=== PATIENT | male | born 1970 | race Caucasian/White ===

== ENCOUNTER 2025-02-02 15:57 | Emergency (ER) | payer BC, SELFPAY ==
[2025-02-02] VITALS (9 sets, daily range): BP systolic 124; BP diastolic 84; PULSE 84–93; RESP 20; TEMP 36.3; O2SAT 91–95; BMI 45.0
--- OUTSIDE RECORDS SUMMARY | 2025-02-02 16:00 | XMS_ITS | Clinical Summary ---
Author Organization [facility] Address [address] [place] [address] Care Team Providers Care Business Development Professional Name Role Phone Flaca Phillips Primary Care Provider [phone] Allergies Active Allergy Reactions Criticality Noted Date Comments Levofloxacin Other - Describe In Comment Field 08/07/2023 History of Aneurysm of thoracic aorta, first noted on 01/18/2023. Fluoroquinolones have been associated with aortic aneurysm and aortic dissection. Onset is delayed in most cases. Metformin Diarrhea 02/24/2014 Medications melatonin 10 mg tab Take 50 mg by mouth at bedtime. Active Ventolin HFA 90 mcg/actuation inhalerIndication s:Wheezing Inhale 2 Puffs by mouth 4 times daily if needed for Shortness Of Breath or Wheezing. 18 g 1 023 Active acetaminophen (TylenoL) 325 mg tablet Take 650 mg by mouth at bedtime. Max acetaminophen dose: 4000mg in 24 hrs. Active oxygen-air delivery systems (HOME OXYGEN)Indication s:Community acquired pneumonia, unspecified laterality,Hypoxi a,Acute on chronic congestive heart failure, unspecified heart failure type (HC) Oxygen for home use. Liters per minute: 1 L at rest and 2 L with activity per nasal cannula. Will also need 1 L of oxygen bled into CPAP at night. Frequency of use: Continuous with portability.;. Length of need: 99 Months. 1 Each 024 Active Additional Information Patient taking differently: EACH TIME PRN, Oxygen for home use. Liters per minute: 1 L at rest and 2 L with activity per nasal cannula. Will also need 1 L of oxygen bled into CPAP at night. Frequency of use: Continuous with portability.;. Length of need: 99 Months., Informant: Significant Other, Reported on 11/26/2024 camphor-menthoL ([place]) 11-11 % oint Apply topically to affected area(s) 4 times daily if needed (apply to feet for nerve pain). Active camphor-eucalyptu s oiL-menthoL (Vicks Vaporub) 4.7%-1.2%-2.6% ointment Apply topically to affected area(s) 4 times daily if needed (apply to feet as needed for nerve pain relief). Active torsemide (DEMADEX) 20 mg tabletIndications :HFrEF (heart failure with reduced ejection fraction) (HC) Take 1.5 Tablets (30 mg) by mouth once daily. 45 Tablet 2 03/07/20 24 4:54 PM CDT 024 Active Walker - 4 wheelsIndications :Chronic heart failure with preserved ejection fraction (HFpEF) (HC),Acute HFrEF (heart failure with reduced ejection fraction) (HC),CAD in [place] artery,Diabetic peripheral neuropathy (HC),At high risk for falls,Generalized weakness For home use. Length of need: lifetime Diagnosis: CHF, CAD, increased risk falls. 1 Each 024 Active miscellaneous medical supply miscIndications:C hronic heart failure with preserved ejection fraction (HFpEF) (HC),Acute HFrEF (heart failure with reduced ejection fraction) (HC),CAD in [place] artery,Diabetic peripheral neuropathy (HC),At high risk for falls,Generalized weakness As directed. Tub transfer Bench Diagnosis: CHF, CAD, increased risk of falling, generalized weakness. 1 Each 024 Active oxygen-air delivery systems (HOME OXYGEN)Indication s:Heart failure with mildly reduced ejection fraction (HC),Hypoxia,Pneu monia due to methicillin resistant Staphylococcus aureus (MRSA), unspecified laterality, unspecified part of lung (HC) Portable Conserving Oxygen (backpack style) for home use. Liters per minute: 3 per nasal cannula. Frequency of use: Continuous with portability.;. Length of need: 12 Months.Portable Oxygen (backpack style) for home use. Liters per minute: 3 per nasal cannula. Frequency of use: Continuous with portability.;. Length of need: 12 Months. 1 Each 024 Active rosuvastatin (CRESTOR) 20 mg tabletIndications :Cardiovascular symptoms,Ischemic cardiomyopathy,Co ronary artery disease, unspecified vessel or lesion type, unspecified whether angina present, unspecified whether [place] or transplanted heart Take 1 Tablet (20 mg) by mouth at bedtime. 90 Tablet 3 024 Active Blood Pressure Kit-Extra Large kitIndications:Hy pertension As directed. 1 Each 024 Active blood-glucose meterIndications: Type 2 diabetes mellitus with diabetic neuropathy, with long-term current use of insulin (HC) Dispense meter, test strips, lancets covered by pt ins. E11.65 NIDDM type II, uncontrolled - Test 2 times/day. Reason: High A1C 1 Each 024 Active spironolactone (ALDACTONE) 25 mg tabletIndications :Acute heart failure with preserved ejection fraction (HC) Take 0.5 Tablets (12.5 mg) by mouth once daily. 45 Tablet 3 024 Active pregabalin (LYRICA) 150 mg capsuleIndication s:Other polyneuropathy Take 1 Capsule (150 mg) by mouth two times daily. 180 Capsule 1 025 Active Semglee,insulin glarg-yfgn,Pen 100 unit/mL (3 mL) penIndications:Ty pe 2 diabetes mellitus with diabetic neuropathy, with long-term current use of insulin (HC) Inject 50 units subcutaneous before bedtime. 45 mL 1 025 Active apixaban (Eliquis) 5 mg tabletIndications :PAF (paroxysmal atrial fibrillation) (HC) Take 1 tablet by mouth twice daily 180 Tablet 3 025 Active mupirocin 2% ointmentIndicatio ns:Pneumonia due to methicillin resistant Staphylococcus aureus (MRSA), unspecified laterality, unspecified part of lung (HC) apply ointment to both nostrils twice daily for one week 15 g 025 Active ENTRESTO 24 MG-26 MG TABLET 24-26 mg tabletIndications :HFrEF (heart failure with reduced ejection fraction) (HC) Take 1 tablet by mouth twice daily 180 Tablet Active DULoxetine 60 mg Delayed-release capsuleIndication s:Type 2 diabetes mellitus with diabetic neuropathy, with long-term current use of insulin (HC),MDD (major depressive disorder), recurrent episode, moderate (HC) Take 1 capsule by mouth twice daily 180 Capsule Active metoprolol succinate 100 mg Sustained-Release tabletIndications :Atrial flutter with rapid ventricular response (HC),Sinus tachycardia Take 1 tablet by mouth once daily 30 Tablet Active Jardiance 10 mg tabletIndications :Type 2 diabetes mellitus with diabetic neuropathy, with long-term current use of insulin (HC),Acute heart failure with preserved ejection fraction (HC) Take 1 tablet by mouth once daily 30 Tablet Active empagliflozin (Jardiance) 10 mg tabletIndications :Type 2 diabetes mellitus with diabetic neuropathy, with long-term current use of insulin (HC),Acute heart failure with preserved ejection fraction (HC) Take 1 tablet by mouth once daily 60 Tablet 025 2024 Discontinued metoprolol succinate 100 mg Sustained-Release tabletIndications :Atrial flutter with rapid ventricular response (HC),Sinus tachycardia Take 1 tablet by mouth once daily 30 Tablet 025 2024 Discontinued amoxicillin-clavu lanate 875-125 mg tabletIndications :lower respiratory infection Take 1 Tablet by mouth two times daily with meals for 5 days. 10 Tablet 025 2024 doxycycline hyclate 100 mg capsuleIndication s:lower respiratory infection Take 1 Capsule (100 mg) by mouth two times daily for 5 days. 10 Capsule 025 2024 Active Problems Problem Noted Date Diagnosed Date Bilateral pneumonia 05/01/2024 Multifocal pneumonia 04/11/2024 Hyponatremia 04/11/2024 Acute kidney insufficiency 04/11/2024 Ventricular tachycardia 04/11/2024 Orthostatic hypotension 04/11/2024 CAD in [place] artery 03/20/2024 At high risk for falls 03/20/2024 Generalized weakness 03/20/2024 Atrial fibrillation 03/03/2024 Non-sustained ventricular tachycardia 03/03/2024 Unstable angina 02/28/2024 Pleural effusion 02/28/2024 Sinus tachycardia 01/27/2024 Pneumonia of both lower lobes 01/26/2024 Hypoxia 01/26/2024 Pancreatitis 11/16/2023 Severe episode of recurrent major depressive disorder, without psychotic features 10/28/2023 Seborrheic dermatitis 09/25/2023 BRYANT on CPAP 09/25/2023 Ascending aorta dilatation 08/21/2023 Overview (08/21/2023): 4.6 cm Pneumonia due to methicillin resistant Staphylococcus aureus (MRSA) 08/21/2023 Chronic heart failure with p reserved ejection fraction (HFpEF) 07/12/2023 HCAP (healthcare-associated pneumonia) PAF (paroxysmal atrial fibrillation) 07/12/2023 CKD (chronic kidney disease) stage 3, GFR 30-59 ml/min 07/12/2023 Paroxysmal SVT (supraventricular tachycardia) GERD (gastroesophageal reflux disease) Aneurysm of thoracic aorta 01/18/2023 Overview (01/17/2024): First noted on echo 01/17/2023 (5.0 cm) Reviewed with radiology, measured CT PE study from 01/16/[address] PE study 05/22/2022 and at those times ascending aorta measured at 5.[address] 11/16/23 showed it measured 4.6 x 4.8 cm. Diabetic peripheral neuropathy 10/27/2020 MDD (major depressive disord er), recurrent episode, moderate 10/27/2020 Chronic pain syndrome 05/28/2020 Mixed hyperlipidemia 05/28/2020 Morbid obesity 05/28/2020 Brachial radiculitis 06/03/2019 Type 2 diabetes mellitus wit h diabetic neuropathy, with long-term current use of insulin 03/19/2019 Gastroesophageal reflux disease 03/16/2018 Shoulder pain 03/16/2018 Spondylosis of cervical spine without myelopathy 08/23/2017 MRSA colonization 05/20/2016 Lymphedema 06/19/2013 Migraine headache 05/19/2013 Unspecified essential hypertension 02/04/2009 Unspecified hypothyroidism 05/16/2008 Unspecified sleep apnea 12/04/2006 Resolved Problems Problem Noted Date Diagnosed Date Resolved Date Heart failure with mildly re duced ejection fraction 02/28/2024 08/27/2024 Pleural effusion 02/07/2024 08/27/2024 Acute on chronic diastolic c ongestive heart failure 01/26/2024 08/27/2024 Sepsis 01/26/2024 08/27/2024 Acute HFrEF (heart failure w ith reduced ejection fraction) 08/21/2023 08/27/2024 Acute hypoxemic respiratory failure 08/06/2023 10/28/2023 Pneumonia 07/12/2023 07/12/2023 CHF (congestive heart failure) 07/12/2023 07/12/2023 CAP (community acquired pneumonia) 07/12/2023 07/12/2023 Chronic atrial fibrillation 06/23/2023 07/12/2023 Anticoagulation monitoring, INR range 2-3 06/23/2023 08/15/2023 Acute respiratory failure with hypoxia 06/14/2023 07/12/2023 Pneumonia 06/14/2023 07/12/2023 JAVON (acute kidney injury) 06/02/2023 Left leg cellulitis 06/02/2023 07/12/20 Sepsis 05/29/2023 07/12/2023 Acute heart failure with pre served ejection fraction 01/25/2023 07/12/2023 Anticoagulation monitoring, INR range 2-3 01/24/2023 03/04/2023 Acute respiratory failure with hypoxia 01/24/2023 03/06/2023 Cellulitis of left lower leg 01/24/2023 07/12/2023 Bilateral pleural effusion 01/24/2023 0 03/06/2023 Chronic atrial fibrillation 01/19/2023 03/06/2023 Severe sepsis 01/16/2023 03/06/2023 Pneumonia of left lower lobe due to infectious organism 01/16/2023 03/06/2023 Hyperglycemia 01/16/2023 03/06/2023 Fall 01/16/2023 03/06/2023 COVID-19 virus infection 05/22/2022 Acute pancreatitis 04/19/2022 Controlled substance agreement signed 03/20/2021 03/06/2023 Overview (03/20/2021): Oxycodone if needed for severe neuropathy pain, up to #30 tabs/month. Alejandra Ivey PA-C, Family Medicine.....................03/20/2021 7:21 AM HLD (hyperlipidemia) 05/27/2020 023 Hypokalemia 03/21/2019 03/06/2023 Cough 03/16/2018 03/06/2023 Overview (04/17/2022): Overview: During meals Chest pain 11/18/2017 03/06/2023 Acute pancreatitis 05/17/2016 Idiopathic acute pancreatitis 08/09/2015 03/06/2023 Left leg cellulitis 04/04/2015 11/25/19 17 Chronic pain 04/04/2015 03/31/2021 Other residential (current) drug therapy 09/22/2014 03/06/2023 Paresthesia 01/27/2014 03/06/2023 Insomnia 08/16/2013 03/06/2023 Pain in extremity 08/16/2013 03/06/2023 [facility] Care Contract 04/19/2010 017 Overview (04/19/2010): This patient, PCP and Care Guide have signed a letter agreeing on a set of goals for diabetes, hypertension and/or CHF. Please look for [facility] Care Goal Contract in Chart Review/ Letters and support this effort. Please direct questions to Care Guide Reina Puckett Phone number [phone] Major depressive disorder, s estefania episode, moderate 09/12/2008 10/27/2020 Edema 05/20/2008 03/06/2023 Somnolence 05/20/2008 11/24/2016 Type II or unspecified type diabetes mellitus without mention of complication, not stated as uncontrolled 01/09/2008 07/12/2023 Lumbago 06/15/2007 03/06/2023 Morbid obesity 12/04/2006 10/23/2020 Encounters Date Type Department Care Team Description 02/02/[address] [phone] Flaca Phillips DO Refill Request (Jardiance) 01/22/2025 Telephone [facility] [place] [address] [place] [address] Erich Mackenzie MD Appointment (LVM to reschedule 03/19/[address] Mackenzie./2nd Attempt LVM to reschedule appointment with Dr. Mackenzie.) 01/15/2025 Nurse Triage [facility] [address] [place] [phone] Flaca Phillips DO Cough 01/14/2025 Telephone [facility] [address] [place], [place] [id number] Stanislav Benson MD DME Supply (CPAP) 01/09/2025 Patient Outreach [facility] Care Management - Advanced Care Team [address] [place], [place] [phone] Charlie Caballero, associate dean of students Management (RN Outreach, Engagement Outreach, due to Internal Case Finding /) 01/06/2025 Refill [facility] [address] [place] [address] Flaca Phillips DO Refill Request (Jardiance) 01/05/[address] [address] Flaca Phillips DO Refill Request (Metoprolol Succinate) 01/01/2025 Refill [facility] [address] [place] [address] Flaca Phillips DO Refill Request (Entresto 24 Mg-26 Mg Tablet, Duloxetine) 01/01/2025 Travel 12/31/2024 11:36 PM CDT - 01/01/2025 1:15 AM CDT Emergency [facility] [address] [place] [address] Brandon Bolton MD Pneumonia due to infectious organism, unspecified laterality, unspecified part of lung (Primary Dx); Hyperglycemia due to diabetes mellitus (HC) Discharge Disposition: Home Self Care 12/31/2024 Travel 12/20/2024 Patient Outreach [facility] Care Management - Advanced Care Team [address] [place] [address] Leila Rees, EZIO Complex Care Management (Complex Care Engagement) 12/16/2024 1:44 PM CDT - 12/16/2024 11:59 PM CDT Hospital Encounter [facility] [address] [place] [address] Brenda Garcia MD Mawdsley, Catherine M, PATTI Pneumonia due to methicillin resistant Staphylococcus aureus (MRSA), unspecified laterality, unspecified part of lung (HC) 12/16/2024 Travel 12/11/[address] [address] Flaca Phillips DO Refill Request (metoprolol ) 12/11/[address] [address] Flaca Phillips DO Refill Request (Metoprolol Succinate) 12/06/2024 3:40 PM CDT - 12/06/2024 6:01 PM CDT Emergency [facility] [address] [place] [address] Yolette Keith PA Hematuria, unspecified type (Primary Dx) Discharge Disposition: Home Self Care 12/06/2024 Travel 12/05/[address] [address] Flaca Phillips DO Refill Request (Duloxetine) 12/03/2024 Nurse Triage [address] [phone] Flaca Phillips DO Blood In Urine 11/28/2024 9:30 AM CDT Ancillary Procedure [facility] [address] [facility] [place] [address] 11/27/2024 Telephone [facility] [address] [facility] [place] [address] Brenda Garcia MD Results 11/27/2024 Telephone [facility] [phone] Brenda Garcia MD Lab (Test cancellation/) 11/26/2024 2:00 PM CDT Office Visit [facility] [address] [address] [place] [address] Brenda Garcia MD Consult; Medication Management 11/26/2024 Travel 11/15/2024 3:30 PM TWINE W[facility]ER Telemedicine [facility] - [address] [place] [address] [facility] [place] [address] Sanchez Tilley MD 11/15/2024 Travel 11/10/2024 Travel 11/10/2024 Refill [facility] [address] [place] [address] Flaca Phillips, Refill Request (Jardiance) from Last 3 Months Immunizations Immunization Administration Dates Next Due COVID-19 VACCINE SPIKEVAX (M ODERNA 50MCG/0.5ML) 12YO+ PFS 06/23/2023 COVID-19 vaccine (Pfizer-Bio NTech 30mcg/0.3mL) PF, MDV 09/20/2021,01/27/2021,01/06/2021 Hepatitis B (Adult) 03/03/2023 Influenza Virus, Unspecified 07/12/2016, 08/08/2015,09/22/2014,2012,05/26/2013,06/18/2012,06/25/2011,0 06/03/2009,08/04/2008 Influenza, High-dose Inactivated 05/12/2013 Influenza, IIV3 (Age >=3 years) 05/30/20 13,06/18/2012,06/28/2011,2010,06/03/2009,08/04/2008 Influenza, IIV4 06/17/2023, 2,06/04/2020,2018,06/29/2018,11/14/2017,07/12/2016,1 10/10/2014 Pneumococcal Poly,23-Valent (Pneumovax) 12/02/2011,10/08/2010 Pneumococcal conj 13-Valent (Prevnar 13) 09/22/2014 Tdap 03/03/2023,12/02/2011 Zoster (Shingrix-RZV, recombinant) 03/03/2023 Family History Medical History Relation Name Comments Diabetes Father Heart Disease Father Other Father obesity Diabetes Maternal Grandfather Stroke Maternal Grandfather Alzheimer's disease Maternal Grandmother Asthma Mother Relation Name Status Comments Father Maternal Grandfather Maternal Grandmother Mother Alive Paternal Grandfather Paternal Grandmother Social History Tobacco Use Types Packs/Day Years Used Date Smoking Tobacco: Never Passive Smoke Exposure: Past Smokeless Tobacco: Never Tobacco Cessation:Counseling Given: Not Answered Alcohol Use Standard Drinks/Week Comments Not Currently 0 (1 standard drink = 0.6 oz pur e alcohol) rare PHQ-2 Answer Date Recorded PHQ-2 TOTAL SCORE 2 07/10/2023 Social Connections Answer Date Recorded Do you often feel lonely or isolated from those around you? 0 05/01/2024 Financial Resource Strain Answer Date R ecorded Difficulty of Paying Living Expenses 3 12/20/2024 Difficulty of Paying Living Expenses Not on file 12/20/2024 Food Insecurity Answer Date Recorded Do you worry your food will run out before you are able to buy more? 1 12/20/2024 Transportation Needs Answer Date Record ed Does lack of transportation keep you from medica l appointments? 1 12/20/2024 Does lack of transportation keep you from work, meetings or getting things that you need? 1 12/20/2024 Housing Stability Answer Date Recorded What is your housing situation today? 1 12/20/2024 Interpersonal Safety Answer Date Record ed Are you being hit, kicked, p ushed or yelled at (see row info)? No 12/31/2024 Interpersonal Safety Abuse 12 - 18 Not on file 12/31/2024 Interpersonal Safety Ambulatory Vulnerability No t on file 12/31/2024 Utilities Answer Date Recorded Do you have trouble paying f or utilities (for example, heat, electricity, water, phone)? 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 Not on file Not on file Not on file Obstetrics History Last Filed Vital Signs Vital Sign Reading Time Taken Comments Blood Pressure 112/72 01/01/2025 1:00 AM CDT Pulse 90 01/01/2025 1:00 AM CDT Temperature 37.1 C (98.8 F) 12/31/2024 11:41 PM CDT Respiratory Rate 18 12/31/2024 11:41 PM CDT Oxygen Saturation 92% 01/01/2025 1:00 AM CDT Inhaled Oxygen Concentration - - Weight 146 kg (321 lb 14 oz) 12/31/2024 11:41 PM CDT Height 180.3 cm (5' 11) 12/31/2024 11:41 PM CDT Body Mass Index 44.89 12/31/2024 11:41 PM CDT Plan of Treatment Upcoming Encounters Date Type Department Care Team (Late st Contact Info) Description 02/04/2025 11:00 AM CDT Office Visit [facility] [address] [place] [phone] [place] [address] [facility] [address] [place] [address] 02/11/2025 10:30 AM CDT Office Visit [facility] [address] [place] [address] Stanislav Benson MD [address] [place] [address] 02/14/2025 2:20 PM CDT Office Visit [address] [phone] Flaca Phillips DO [address] [place] [address] 03/13/2025 10:00 AM CDT Appointment [facility] [address] [facility] [place] [address] 05/26/2025 10:40 AM CDT Office Visit [facility] [place] [address] [place] [address] Raymon Salazar MD [address] [facility] [address] [place] [address] Health Maintenance Due Date Last Done Comments Colonoscopy through age 75 2013 Pneumococcal series for age 50+ (3 of 3 - PCV20 or PCV21) 09/22/2019 09/22/2014, 12/02/2011, 10/08/2010 Hepatitis B series for 19+ ( 2 of 3 - 19+ 3-dose series) 03/31/2023 03/03/2023 Zoster (shingles) series for age 50+ (2 of 2) 04/28/2023 03/03/2023 COVID-19 vaccine series ( season) 2024 06/23/2023, 07/11/2022, 09/20/2021, Additional history exists Depression screening for age 12+ 07/14/2024 07/14/2023, 07/12/2023, 07/12/2023, Additional history exists Influenza Vaccine (Season Ended) 2025 06/17/2023, 07/11/2022, 06/04/2020, Additional history exists BMI (ht and wt on same day) for age 18+ 08/09/2025 08/09/2024, 02/28/2024, 02/13/2024, Additional history exists Lipids for age 45-75 07/04/2029 07/04/2024, 02/29/2024, 06/23/2023, Additional history exists Tetanus booster 03/03/2033 03/03/2023, 12/02/2011 Hepatitis C screening for ag e 18-79 Completed 05/18/2016 Tdap Completed 03/03/2023, 12/02/2011 HIV for age 15-65 Completed 06/23/2023 Procedures Procedure Name Priority Date/Time Associated Diagnosis Comments EKG 12 LEAD STAT 01/01/2025 12:26 AM CDT XR CHEST 2 VIEWS PA AND LATERAL STAT 01/01/2025 12:15 AM CDT RED CELL MORPHOLOGY STAT 12/31/2024 1 1:54 PM CDT PLATELET ESTIMATE STAT 12/31/2024 11: 54 PM CDT MANUAL DIFFERENTIAL STAT 12/31/2024 1 1:54 PM CDT CBC WITH AUTO DIFFERENTIAL STAT 12/31/2024 11:54 PM CDT INFLUENZA A/B PCR STAT 12/31/2024 11: 54 PM CDT COVID-19 MOLECULAR STAT 12/31/2024 11 :54 PM CDT PRO-BNP STAT 12/31/2024 11:54 PM CDT EXTRA TUBE BLUE Today 12/31/2024 11:54 PM CDT BASIC METABOLIC PANEL STAT 12/31/2024 11:54 PM CDT CBC WITH AUTO DIFFERENTIAL STAT 12/31/2024 11:54 PM CDT XR VIDEO SWALLOW W SPEECH Routine 12/16/2024 2:04 PM CDT Pneumonia due to methicillin resistant Staphylococcus aureus (MRSA), unspecified laterality, unspecified part of lung (HC) CT ABDOMEN PELVIS STONE PROTOCOL WO STAT 12/06/2024 4:49 PM CDT CBC WITH AUTO DIFFERENTIAL STAT 12/06/2024 4:29 PM CDT C-REACTIVE PROTEIN STAT 12/06/2024 4: 29 PM CDT BASIC METABOLIC PANEL STAT 12/06/2024 4:29 PM CDT CBC WITH AUTO DIFFERENTIAL STAT 12/06/2024 4:29 PM CDT URINE CULTURE MEKHI 12/06/2024 3:53 PM CDT URINALYSIS MICROSCOPIC STAT 12/06/2024 3:53 PM CDT UA W/ SEDIMENT EXAM REFLEXED PER CRITERIA STAT 12/06/2024 3:53 PM CDT PRO-BNP Routine 11/26/2024 2:49 PM CDT Pneumonia due to methicillin resistant Staphylococcus aureus (MRSA), unspecified laterality, unspecified part of lung (HC) CBC WITH AUTO DIFFERENTIAL Routine 11/26/2024 2:49 PM CDT Pneumonia due to methicillin resistant Staphylococcus aureus (MRSA), unspecified laterality, unspecified part of lung (HC) IMMUNOGLOBULINS,IGG/ A/M Routine 11/26/2024 2:49 PM CDT Pneumonia due to methicillin resistant Staphylococcus aureus (MRSA), unspecified laterality, unspecified part of lung (HC) PROCALCITONIN Routine 11/26/2024 2:49 PM CDT Pneumonia due to methicillin resistant Staphylococcus aureus (MRSA), unspecified laterality, unspecified part of lung (HC) XR CHEST 2 VIEWS PA AND LATERAL Routine 11/26/2024 2:35 PM CDT Pneumonia due to methicillin resistant Staphylococcus aureus (MRSA), unspecified laterality, unspecified part of lung (HC) LIPID PANEL W REFLEX MEASURED LDL Routine 07/04/2024 10:23 AM CDT Type 2 diabetes mellitus with diabetic neuropathy, with long-term current use of insulin (HC) ANTI HIV 1/2 Routine 06/23/2023 10:37 AM CDT Screening for HIV (human immunodeficiency virus) ANTI HCV Early AM 05/18/2016 6:15 AM CDT from Last 3 Months or Most Recently Relevant to Health Maintenance Results * EKG 12 LEAD (01/01/2025 12:26 AM CDT) Interpretation Sinus rhythm with Premature supraventricular complexes Prolonged QT Abnormal ECG BEYOND NOW Ventricular Rate 98 BPM BEYOND NOW Atrial Rate 98 BPM BEYOND NOW P-R Interval 178 ms BEYOND NOW QRS Duration 84 ms BEYOND NOW QT 386 ms BEYOND NOW QTc 492 ms BEYOND NOW P [place] 50 degrees BEYOND NOW R [place] -28 degrees BEYOND NOW T [place] 24 degrees BEYOND NOW 01/01/2025 12:2 6 AM CDT 01/01/2025 2:18 AM CDT us Brandon Bolton MD EKG ORD Final Res ult BEYOND NOW [place], [place] * XR CHEST 2 VIEWS PA AND LATERAL (01/01/2025 12:15 AM CDT) Only the most recent of2 resultswithin the time period is included. Anatomical Region Laterality Modality CHEST, THORAX, Lung, HEART Digit al Radiography 01/01/2025 12:5 2 AM CDT Impressions 01/01/2025 12:52 AM CDT Persistent right mid lung and left basilar linear consolidations, likely scarring. Otherwise, no acute cardiopulmonary abnormality. Dictated by Robe Anne MD @ 01/01/2025 12:52:21 AM (Electronically Signed) Narrative 01/01/2025 12:52 AM CDT For Patients: As a result of the Century Cures Act, medical imaging exams and procedure reports are released immediately into your electronic medical record. You may view this report before your referring provider. If you have questions, please contact your health care provider. INDICATION: Shortness of breath. TECHNIQUE: Chest 2 views. COMPARISON: November 26, 2024. FINDINGS: Cardiovascular and mediastinum: Heart size and vasculature are normal in caliber and appearance. Lungs and pleural spaces: Persistent right mid lung and left basilar linear consolidations, likely scarring. No sign of pleural effusion. No pneumothorax. Bones and soft tissues: No significant findings. Procedure Note Robe Anne MD - 01/01/2025 For Patients: As a result of the Century Cures Act, medical imagingexams and procedure reports are released immediately into your electronicmedical record. You may view this report before your referring provider.If you have questions, please contact your health care provider. INDICATION: Shortness of breath. TECHNIQUE: Chest 2 views. COMPARISON: November 26, 2024. FINDINGS: Cardiovascular and mediastinum: Heart size and vasculature are normal incaliber and appearance. Lungs and pleural spaces: Persistent right mid lung and left basilarlinear consolidations, likely scarring. No sign of pleural effusion. Nopneumothorax. Bones and soft tissues: No significant findings. IMPRESSION: Persistent right mid lung and left basilar linear consolidations, likelyscarring. Otherwise, no acute cardiopulmonary abnormality. Dictated by Robe Anne MD @ 01/01/2025 12:52:21 AM (Electronically Signed) Darwin Rolle MD GENERAL IMAGING Fin al Result * COVID-19 MOLECULAR (12/31/2024 11:54 PM CDT) COVID 19 [place] MOLECULAR Not detected Not detected 01/01/2025 12:43 AM CDT [facility] TESTING LABORATORY [facility] 01/01/2025 12:43 AM CDT [facility] Comment:Specimen submitted t o [facility] Laboratory for testing. Other SPECIMEN FROM NASOPHARYNGEAL STRUCTURE / Unknown Non-Blood / Unknown 12/31/2024 11:54 PM CDT 12/31/2024 11:59 PM CDT Darwin Rolle MD MICROBIOLOGY Fin al Result [facility] [address] [place] [id number] * INFLUENZA A/B PCR (12/31/2024 11:54 PM CDT) Pathologist [facility] INFLUENZA A PCR NOT Detected 01/01/2025 12:43 AM CDT [facility] INFLUENZA B PCR NOT Detected 01/01/2025 12:43 AM [facility] Other SPECIMEN FROM NASOPHARYNGEAL STRUCTURE / Unknown Non-Blood / Unknown 12/31/2024 11:54 PM CDT 12/31/2024 11:59 PM CDT Darwin Rolle MD MICROBIOLOGY Fin al Result [facility] [address] [place] [address] * (ABNORMAL) CBC WITH AUTO DIFFERENTIAL (12/31/2024 11:54 PM CDT) Only the most recent of2 resultswithin the time period is included. WHITE BLOOD COUNT 11.4(H) 4.5 - 11.0 thou/cu mm 01/01/2025 12:49 AM [facility] RED BLOOD COUNT 5.42 4.30 - 5.90 mil/cu mm 01/01/2025 12:49 AM [facility] HEMOGLOBIN 14.8 13.5 - 17.5 g/dL 01/01/2025 12:49 AM [facility] HEMATOCRIT 45.2 37.0 - 53.0 % 01/01/2025 12:49 AM [facility] MCV 83 80 - 100 fL 01/01/2025 12:49 AM [facility] MCH 27.3 26.0 - 34.0 pg 01/01/2025 12:49 AM [facility] MCHC 32.7 32.0 - 36.0 g/dL 01/01/2025 12:49 AM [facility] RDW 14.3 11.5 - 15.5 % 01/01/2025 12:49 AM [facility] PLATELET COUNT 264 140 - 440 thou/cu mm 01/01/2025 12:49 AM [facility] MPV 11.0 6.5 - 11.0 fL 01/01/2025 12:49 AM [facility] Blood BLOOD SPECIMEN / Unknown Butterfly / Unknown 12/31/2024 11:54 PM CDT 01/01/2025 12:00 AM CDT Darwin Rolle MD HEMATOLOGY Fin al Result Performing Organization Address City/[facility] Co de Phone Number [facility] [address] [place] [address] * RED CELL MORPHOLOGY (12/31/2024 11:54 PM CDT) Pathologist [facility] RBC COMMENT RBC morphology appears normal RBC morphology appears normal, RBC morphology within normal limits for newborns. 01/01/2025 12:49 AM CDT [facility] LARGE PLATELETS Present 01/01/2025 12:49 AM CDT [facility] Blood BLOOD SPECIMEN / Unknown Butterfly / Unknown 12/31/2024 11:54 PM CDT 01/01/2025 12:00 AM CDT Darwin Rlole MD HEMATOLOGY Fin al Result Performing Organization Address [facility] Co de Phone Number [facility] [address] [place] [address] * PLATELET ESTIMATE (12/31/2024 11:54 PM CDT) [facility] PLATELET ESTIMATE Adequate Adequate, No estimate 01/01/2025 12:49 AM CDT [facility] Blood BLOOD SPECIMEN / Unknown Butterfly / Unknown 12/31/2024 11:54 PM CDT 01/01/2025 12:00 AM CDT Darwin Rolle MD HEMATOLOGY Fin al Result Performing Organization Address City/[facility]/ZIP Co de Phone Number [facility] [address] [place] [address] * EXTRA TUBE BLUE (12/31/2024 11:54 PM CDT) Blood BLOOD SPECIMEN / Unknown Butterfly / Unknown 12/31/2024 11:54 PM CDT 01/01/2025 12:00 AM CDT us Darwin Rolle MD LABORATORY Fin al Result Performing Organization Address City/[facility]/ZIP Co de Phone Number [facility] [address] [place] [address] * (ABNORMAL) MANUAL DIFFERENTIAL (12/31/2024 11:54 PM CDT) % NEUTROPHILS 76.0 % 01/01/2025 12:49 AM T [facility] % LYMPHOCYTES 18.0 % 01/01/2025 12:49 AM T [facility] % MONOCYTES 2.0 % 01/01/2025 12:49 AM [facility] % EOSINOPHILS 4.0 % 01/01/2025 12:49 AM [facility] % BASOPHILS 0.0 % 01/01/2025 12:49 AM [facility] NEUTROPHILS ABSOLUTE 8.7(H) 1.7 - 7.0 thou/cu mm 01/01/2025 12:49 AM [facility] LYMPHOCYTES ABSOLUTE 2.1 0.9 - 2.9 thou/cu mm 01/01/2025 12:49 AM [facility] MONOCYTES ABSOLUTE 0.2 <0.9 thou/cu mm 01/01/2025 12:49 AM [facility] EOSINOPHILS ABSOLUTE 0.5(H) <0.5 thou/cu mm 01/01/2025 12:49 AM [facility] BASOPHILS ABSOLUTE 0.0 <0.3 thou/cu mm 01/01/2025 12:49 AM [facility] Blood BLOOD SPECIMEN / Unknown Butterfly / Unknown 12/31/2024 11:54 PM CDT 01/01/2025 12:00 AM CDT us Darwin Rolle MD HEMATOLOGY Fin al Result [facility] [address] [place] [address] * (ABNORMAL) PRO-BNP (12/31/2024 11:54 PM CDT) Only the most recent of2 resultswithin the time period is included. PRO-BNP 218(H) <125 pg/mL 01/01/2025 12:42 AM T [facility] Blood BLOOD SPECIMEN / Unknown Butterfly / Unknown 12/31/2024 11:54 PM CDT 01/01/2025 12:00 AM CDT [facility]ATORY - 01/01/2025 12:42 AM CDT The following cut-points have been suggested for the use of proBNP for the diagnostic evaluation of heart failure (HF) in patient with acute dyspnea. Patients with eGFR >= 60 Diagnosis (rule in CHF) <50 Years Old 450 pg/mL 50 - 75 Years Old 900 pg/mL >75 Years Old 1800 pg/mL Exclusion (rule out CHF) Age Independent 300 pg/mL A cutoff of 1200 pg/mL for patients with an eGFR <60 yields a diagnostic sensitivity of 89% and specificity of 72% for acute congestive heart failure. Darwin Rolle MD SEND OUTS Fin al Result [facility] [address] [place] [address] * (ABNORMAL) BASIC METABOLIC PANEL (12/31/2024 11:54 PM CDT) Only the most recent of2 resultswithin the time period is included. SODIUM 133(L) 136 - 145 mmol/L 01/01/2025 12:44 AM T [facility] POTASSIUM 4.3 3.5 - 5.1 mmol/L 01/01/2025 12:44 AM [facility] CHLORIDE 93(L) 98 - 107 mmol/L 01/01/2025 12:44 AM [facility] CO2,TOTAL 26 22 - 29 mmol/L 01/01/2025 12:44 AM [facility] ANION GAP 14 5 - 18 01/01/2025 12:44 AM [facility] GLUCOSE 519(HH) 70 - 99 mg/dL 01/01/2025 12:44 AM [facility] CALCIUM 9.0 8.8 - 10.4 mg/dL 01/01/2025 12:44 AM [facility] Comment: Reference ranges for this test were updated on 07/16/2024 to reflect our healthy population more accurately. Reference range changes are not retroactively applied to results, but previous results using the same methodology can be interpreted in the context of the new reference range. BUN 21(H) 6 - 20 mg/dL 01/01/2025 12:44 AM [facility] CREATININE 1.11 0.70 - 1.20 mg/dL 01/01/2025 12:44 AM [facility] BUN/CREAT RATIO 19 10 - 20 12:44 AM [facility] eGFR 78(L) >90 mL/min/1. 73m2 01/01/2025 12:44 AM [facility] Comment:As of 2021, eG FR is calculated by the CKD-EPI creatinine equation without race adjustment. eGFR can be influenced by muscle mass, exercise, and diet. The reported eGFR is an estimation only and is only applicable if the renal function is stable. Blood BLOOD SPECIMEN / Unknown Butterfly / Unknown 12/31/2024 11:54 PM CDT 01/01/2025 12:00 AM CDT us Darwin Rolle MD CHEMISTRY Fin al Result [facility] [address] [place] [address] * XR VIDEO SWALLOW AND TREATMENT W SPEECH (12/16/2024 2:04 PM CDT) Anatomical Region Laterality Modality Esophagus Digital Radiogra phy, Computed Tomography Narrative 12/16/2024 2:11 PM CDT For Patients: As a result of the Cures Act, medical imaging exams and procedure reports are released immediately into your electronic medical record. You may view this report before your referring provider. If you have questions, please contact your health care provider. CLINICAL HISTORY: Assess swallow for aspiration. TECHNIQUE: Fluoroscopy was provided for speech pathologist Nadya during video swallow study. Please see additional report for full details and recommendations. 1 minutes and 24 seconds of fluoroscopy time was utilized. FINDINGS: Patient was given barium of varying consistencies to ingest. There was one episode of laryngeal penetration without aspiration during ingestion of thin barium liquids. There was no laryngeal penetration or aspiration during ingestion of pudding + cracker. us Brenda Garcia MD FLUOROSCOPY Final R esult * CT ABDOMEN PELVIS STONE PROTOCOL WO (12/06/2024 4:49 PM CDT) Anatomical Region Laterality Modality Abdomen, Pelvis, AORTA, LIVER, SPLEEN Computed Tomography 12/06/2024 5:29 PM CDT Impressions 12/06/2024 5:29 PM CDT Subtle punctate nonobstructing calculus in the upper pole of the left kidney. No hydronephrosis bilaterally. Please note that all CT scans at this facility use dose modulation, iterative reconstruction, and/or weight-based dosing when appropriate to reduce radiation dose to as low as reasonably achievable. Dictated by Tez Hutchinson MD @ 12/06/2024 5:29:04 PM (Electronically Signed) Narrative 12/06/2024 5:29 PM CDT For Patients: As a result of the Cures Act, medical imaging exams and procedure reports are released immediately into your electronic medical record. You may view this report before your referring provider. If you have questions, please contact your health care provider. INDICATION: Abdominal/flank pain. TECHNIQUE: CT abdomen and pelvis without contrast. COMPARISON: CT abdomen/pelvis dated 04/11/2024. FINDINGS: Lower chest: Bibasilar dependent atelectasis. No large focal consolidation. Evaluation of solid organs is limited secondary to lack of IV contrast administration. Liver: No suspicious focal hepatic lesion. Gallbladder and bile ducts: Unremarkable. Pancreas: Unremarkable. Spleen: Punctate calcified granulomas. Adrenal glands: Stable subcentimeter left adrenal myelolipoma. Kidneys: Punctate nonobstructing calculus in the upper pole of the left kidney. No hydronephrosis bilaterally. Retroperitoneum: No lymphadenopathy. Bowel and mesentery: Bowel is not obstructed. No significant ascites, no pneumoperitoneum. Normal appendix. Bladder: Unremarkable for degree of distention. Reproductive organs: No prostatomegaly. Pelvic lymph nodes: No lymphadenopathy. Vessels: Scattered atherosclerotic calcifications. Abdominal wall: Large fat filled ventral abdominal wall hernia. No acute abdominal wall abnormality. Bones: Multilevel degenerative changes of the spine. No suspicious/aggressive focal osseous lesion. Procedure Note Tez Hutchinson MD - 12/06/2024 For Patients: As a result of the Cures Act, medical imagingexams and procedure reports are released immediately into your electronicmedical record. You may view this report before your referring provider.If you have questions, please contact your health care provider. INDICATION: Abdominal/flank pain. TECHNIQUE: CT abdomen and pelvis without contrast. COMPARISON: CT abdomen/pelvis dated 04/11/2024. FINDINGS: Lower chest: Bibasilar dependent atelectasis. No large focalconsolidation. Evaluation of solid organs is limited secondary to lack of IV contrastadministration. Liver: No suspicious focal hepatic lesion. Gallbladder and bile ducts: Unremarkable. Pancreas: Unremarkable. Spleen: Punctate calcified granulomas. Adrenal glands: Stable subcentimeter left adrenal myelolipoma. Kidneys: Punctate nonobstructing calculus in the upper pole of the leftkidney. No hydronephrosis bilaterally. Retroperitoneum: No lymphadenopathy. Bowel and mesentery: Bowel is not obstructed. No significant ascites, nopneumoperitoneum. Normal appendix. Bladder: Unremarkable for degree of distention. Reproductive organs: No prostatomegaly. Pelvic lymph nodes: No lymphadenopathy. Vessels: Scattered atherosclerotic calcifications. Abdominal wall: Large fat filled ventral abdominal wall hernia. No acuteabdominal wall abnormality. Bones: Multilevel degenerative changes of the spine. Nosuspicious/aggressive focal osseous lesion. IMPRESSION: Subtle punctate nonobstructing calculus in the upper pole of the leftkidney. No hydronephrosis bilaterally. Please note that all CT scans at this facility use dose modulation,iterative reconstruction, and/or weight-based dosing when appropriate toreduce radiation dose to as low as reasonably achievable. Dictated by Tez Hutchinson MD @ 12/06/2024 5:29:04 PM (Electronically Signed) Yolette VASQUEZ CT Final R esult * C-REACTIVE PROTEIN (12/06/2024 4:29 PM CDT) [facility] C-REACTIVE PROTEIN 0.4 <0.5 mg/dL 12/06/2024 4:51 PM CDT [facility] Blood BLOOD SPECIMEN / Unknown Venipuncture / Unknown 12/06/2024 4:29 PM CDT 12/06/2024 4:31 PM CDT Yolette VASQUEZ CHEMISTRY Final R esult [facility] [address] [place] [address] * (ABNORMAL) URINALYSIS MICROSCOPIC (12/06/2024 3:53 PM CDT) [facility] RBC 0-2 0-2, None Seen /HPF 12/06/2024 4:12 PM CDT [facility] WBC 51-100(A) 0-2, 3-5, None Seen /HPF 12/06/2024 4:12 PM CDT [facility] BACTERIA Rare None Seen, Rare, Few Bacteria/ HPF 12/06/2024 4:12 PM CDT [facility] EPITHELIAL CELLS Few None Seen, Few Epi/HPF 12/06/2024 4:12 PM CDT [facility] YEAST Present(A) (none) 12/06/2024 4:12 PM CDT [facility] WHITE CELL CLUMPS Present(A) (none) 12/06/2024 4:12 PM CDT [facility] Urine URINE SPECIMEN / Unknown Non-Blood / Unknown 12/06/2024 3:53 PM CDT 12/06/2024 3:56 PM CDT Yolette VASQUEZ URINE Final R esult Performing Organization Address City/[facility]/ZIP Co de Phone Number [facility] [address] [place] [address] * (ABNORMAL) URINE CULTURE (12/06/2024 3:53 PM CDT) CULTURE RESULT(A) 12/08/2024 2:[address] [facility] CULTURE 50,000-100,000 CFU/mL Brittnee albicans 12/08/2024 2:50 PM CDT [facility] CULTURE 10,000-50,000 CFU/mL Streptococcus agalactiae (Strep Group B) 12/08/2024 2:50 PM CDT [facility] Urine URINE SPECIMEN / Unknown Non-Blood / Unknown 12/06/2024 3:53 PM CDT 12/06/2024 3:56 PM CDT Yolette VASQUEZ MICROBIOLOGY Final R esult [facility] [address] [place] [address], [place] * (ABNORMAL) UA W/ SEDIMENT EXAM REFLEXED PER CRITERIA (12/06/2024 3:53 PM CDT) COLOR Yellow Yellow Color 12/06/2024 4:07 PM CDT [facility] CLARITY Clear Clear Clarity 12/06/2024 4:07 PM CDT [facility] SPECIFIC GRAVITY,URINE 1.010 1.010, 1.015, 1.020, 1.025 12/06/2024 4:07 PM CDT [facility] PH,URINE 5.5 6.0, 7.0, 8.0, 5.5, 6.5, 7.5, 8.5 12/06/2024 4:07 PM CDT [facility] UROBILINOGEN, QUALITATIVE Normal Normal EU/dl 12/06/2024 4:07 PM CDT [facility] PROTEIN, URINE Negative Negative mg/dL 12/06/2024 4:07 PM CDT [facility] GLUCOSE, URINE >=1000(A) Negative mg/dL 12/06/2024 4:07 PM CDT [facility] KETONES,URINE Negative Negative mg/dL 12/06/2024 4:07 PM CDT [facility] BILIRUBIN,URI NE Negative Negative 12/06/2024 4:07 PM CDT [facility] OCCULT BLOOD,URINE Small(A) Negative 12/06/2024 4:07 PM CDT [facility] NITRITE Negative Negative 12/06/2024 4:07 PM CDT [facility] LEUKOCYTE ESTERASE Small(A) Negative 12/06/2024 4:07 PM CDT [facility] Urine URINE SPECIMEN / Unknown Non-Blood / Unknown 12/06/2024 3:53 PM CDT 12/06/2024 3:56 PM CDT Yolette VASQUEZ URINE Final R esult [facility] [address] [place] [address] * PROCALCITONIN (11/26/2024 2:49 PM CDT) PROCALCITONIN <0.10 <0.10 ng/mL [facility], Comment: Interpretation Guidelines Diagnosis of systemic bacterial infection/sepsis <0.50 ng/mL: Low risk for sepsis: local bacterial infection possible >=0.50 to <2.00 ng/mL: Sepsis is possible; other conditions possible >=2.00 to <10.00 ng/mL: Sepsis likely >10.00 ng/mL: Severe bacterial sepsis or septic shock probable Diagnosis of lower respiratory tract infections: <0.10 ng/mL: Bacterial infection very unlikely >=0.10 to <0.25 ng/mL: Bacterial infection unlikely >=0.25 to <0.50 ng/mL: Bacterial infection likely >=0.50 ng/mL: Bacterial infection very likely Procalcitonin levels should be evaluated in context of all laboratory findings and the total clinical status of the patient. For additional information, please refer to http://education.View and Chew/faq/FAQ46 (This link is being provided for informational/educational purposes only.) Blood BLOOD SPECIMEN / Unknown 11/26/2024 2:49 PM CDT 11/26/2024 2:50 PM CDT Brenda Garcia MD SEND OUTS Final R esult Performing Organization Address [facility] Co de Phone Number [employer] Only/[employer] [facility] [address] [place] [address], [employer] [facility], [address] [place] [address] * (ABNORMAL) IMMUNOGLOBULINS,IGG/A/M (11/26/2024 2:49 PM CDT) Pathologist [facility] IMMUNOGLOBULIN A 594(H) 47 - 310 mg/dL [facility] IMMUNOGLOBULIN G 893 600 - 1,640 mg/dL [facility] IMMUNOGLOBULIN M 32(L) 50 - 300 mg/dL [facility] Blood BLOOD SPECIMEN / Unknown 11/26/2024 2:49 PM CDT 11/26/2024 2:50 PM CDT Brenda Garcia MD CHEMISTRY Final R esult Performing Organization Address City/[facility]/ZIP Co de Phone Number Advise Only [facility] [address] [place] [address], [facility] [place] [address] [place] [address] * CBC AND DIFFERENTIAL (11/26/2024 2:49 PM CDT) [facility] WHITE BLOOD CELL COUNT 8.9 3.8 - 10.8 Thousand/u L [facility] RED BLOOD CELL COUNT 5.43 4.20 - 5.80 Million/uL [facility] HEMOGLOBIN 15.2 13.2 - 17.1 g/dL [facility] HEMATOCRIT 46.5 38.5 - 50.0 % [facility] MCV 85.6 80.0 - 100.0 fL [facility] MCH 28.0 27.0 - 33.0 pg [facility] MCHC 32.7 32.0 - 36.0 g/dL [facility] Comment: For adults, a slight decrease in the calculated MCHC value (in the range of 30 to 32 g/dL) is most likely not clinically significant; however, it should be interpreted with caution in correlation with other red cell parameters and the patient's clinical condition. RDW 14.3 11.0 - 15.0 % [facility] PLATELET COUNT 277 140 - 400 Thousand/u L [facility] MPV 12.4 7.5 - 12.5 fL [facility] ABSOLUTE NEUTROPHILS 6,159 1,500 - 7,800 cells/uL [facility] ABSOLUTE LYMPHOCYTES 1,700 850 - 3,900 cells/uL [facility] ABSOLUTE MONOCYTES 739 200 - 950 cells/uL [facility] ABSOLUTE EOSINOPHILS 258 15 - 500 cells/uL [facility] ABSOLUTE BASOPHILS 45 0 - 200 cells/uL [facility] NEUTROPHILS 69.2 % [facility] LYMPHOCYTES 19.1 % [facility] MONOCYTES 8.3 % [facility] EOSINOPHILS 2.9 % [facility] BASOPHILS 0.5 % [facility] Blood BLOOD SPECIMEN / Unknown 11/26/2024 2:49 PM CDT 11/26/2024 2:50 PM CDT us Brenda Garcia MD HEMATOLOGY Final R esult [facility] [facility] [address] [place] [address], [facility] [place] [address] [facility] [place] [address] * (ABNORMAL) LIPID PANEL W REFLEX MEASURED LDL (07/04/2024 10:23 AM CDT) CHOLESTEROL, TOTAL 127 <200 mg/dL [facility] HDL CHOLESTEROL 48 > OR = 40 mg/dL [facility] TRIGLYCERIDES 164(H) <150 mg/dL [facility] LDL-CHOLESTEROL 55 mg/dL (calc) [facility] Comment: Reference range: <100 Desirable range <100 mg/dL for primary prevention; <70 mg/dL for patients with CHD or diabetic patients with > or = 2 CHD risk factors. LDL-C is now calculated using the Afshin calculation, which is a validated novel method providing better accuracy than the Friedewald equation in the estimation of LDL-C. David CHOPRA et al. CHIN. 2013;310(19): 3463-1298 (http://education.Vigno/faq/YAV323) CHOL/HDLC RATIO 2.6 <5.0 (calc) [facility] NON HDL CHOLESTEROL 79 <130 mg/dL (calc) [facility] Comment: For patients with diabetes plus 1 major ASCVD risk factor, treating to a non-HDL-C goal of <100 mg/dL (LDL-C of <70 mg/dL) is considered a therapeutic option. Blood BLOOD SPECIMEN / Unknown 07/04/2024 10:23 AM CDT 07/04/2024 10:25 AM CDT Narrative [facility] - 07/05/2024 5:21 AM CDT FASTING:YES FASTING: YES Flaca Phillips DO CHEMISTRY Final Result Advise Only [facility] [address] [place] [address], [facility] [address] [place] [address] * ANTI HIV 1/2 (06/23/2023 10:37 AM CDT) HIV-1/HIV-2 SCREEN Non-Reacti ve Non-Reacti ve 06/24/2023 3:44 AM CDT [facility] Comment:HIV-1 p24 and HIV-1/ HIV-2 Ab Not Detected. Blood BLOOD SPECIMEN / Unknown Venipuncture / Unknown 06/23/2023 10:37 AM CDT 06/23/2023 10:40 AM CDT Radha Morataya NP SEND OUTS Final Result [facility] [address] [place] [address], * ANTI HCV (05/18/2016 6:15 AM CDT) HEPATITIS C ANTIBODY Non-Reacti ve Non-Reacti ve 05/18/2016 4:14 PM CDT [facility] Blood BLOOD SPECIMEN / Unknown Venipuncture / Unknown 05/18/2016 6:15 AM CDT 05/18/2016 6:34 AM CDT Narrative [facility] - 05/18/2016 4:14 PM CDT Antibodies to HCV not detected; does not exclude the possibility of exposure to HCV. Rhea Diaz MD SEND OUTS Final Resu lt [facility] [address] [place] [address], from Last 3 Months or Most Recently Relevant to Health Maintenance Additional Health Concerns Infection Onset Date Last Indicated MRSA Comment:Order Contact Precautions. Nares surveillance cultures needed to clear patient if <12 months since positive culture. If >12 months since positive culture, precautions can be discontinued if patient has no MRSA risk factors. +MRSA 05/01/2024 sputum +MRSA 04/11/2024, nares, sputum +MRSA 01/28/2024 sputum +MRSA 01/26/2024 nares +MRSA 08/07/23 +MRSA 05/17/2016 nasal +MRSA 05/2013 right lower leg exclusions for contact precaution discontinuation (if > 12 months since positive culture): resides in acute/residential care, receiving hemodialysis, has chronic open wounds/skin damage, has long-term percutaneous indwelling medical devices Exclusions for nares collection (if <12 months since positive culture) include all of the previous exclusions plus patients on antibiotics 7 days prior to collection 08/06/2023 09/09/[address] [facility] [place] [address] [facility] [address] [facility] [place] [address] [facility] [address] [place] [id number] Advance Directives Documents on File Type Date Recorded Patient Campus Director Expl anation Healthcare Directive 06/14/2023 023 * Full Code (Latest Code Status on File) Date Activated Date Inactivated Comments 09/09/2024 10:44 AM 09/09/2024 5:41 PM Question Answer Comments Code Status Discussion: Reviewed Preferences * Full Code Date Activated Date Inactivated Comments 05/01/2024 2:38 AM 05/02/2024 3:05 PM Question Answer Comments Code Status Discussion: Reviewed Preferences * Full Code Date Activated Date Inactivated Comments 04/11/2024 5:58 AM 04/17/2024 2:45 PM Question Answer Comments Code Status Discussion: Reviewed Preferences * DNR Date Activated Date Inactivated Comments 03/24/2024 10:57 AM 04/11/2024 1:12 AM Needs to com plete POLST - please review at upcoming appt. * DNR Date Activated Date Inactivated Comments 02/28/2024 6:01 PM 03/08/2024 5:24 PM DNR - but ok to rescind DNR for any surgery Question Answer Comments Code Status Discussion: Reviewed Preferences Care Teams Business Development Professional Relationship Specialty Start Date End Date Flaca Phillips DO [address] [place] [address] [place] [id number] PCP - General Internal Medicine 08/10/23
--- NOTE | 2025-02-02 16:07 | ED.GENADULT ---
HPI - General Adult General Date Seen: 02/02/25 Chief complaint: Shortness of Breath/Dyspnea Stated complaint: SOB, Wheezing, Chest Pain Time Seen by Provider: 02/02/25 16:07 History of Present Illness HPI narrative: 54-year-old gentleman presenting to the ER today by private car with his . They present to the ER today because he is having right lateral chest pain, cough, weakness, shortness of breath. They were hoping that will do a chest x-ray to see if he has pneumonia. History from the patient is difficult to get. It sounds like he has an incredibly complex past medical history. Difficult to get a clear history of present illness from him but it sounds like he has had symptoms of chest pain and cough since last weekend. Pain is always on the right lateral side of his ribs and hurts to move and breathe. He has had progressive shortness of breath and orthopnea where he has had trouble sleeping when lying in bed for the past couple of nights. It sounds like he does have a CPAP and does use oxygen 2 L every night at home as his baseline. He has had a cough productive of agee sputum. He feels like the pain is deeper inside of his ribs but not in his abdomen or back. He reports that he has bad lung disease and heart disease. He says he has been in the hospital 19 times in the past couple of years. He has been hospitalized at multiple facilities including [facility]. 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 It sounds like he has multiple diagnoses. He says he has ?an aneurysm in my heart? but unclear if he means an aortic aneurysm , has a ventricular aneurysm, or an aneurysm of his coronary arteries. He also says that he has coronary artery disease with 78% stenosis in his ? maker. ?. He also has a leaking heart valve. Apparently at 1 point the doctors at [facility] were proposing that he have open heart surgery to repair his coronary disease, his valve, and his aneurysm all during 1 operation. He says he has been 9 days in the hospital [place] but ultimately his operation was canceled because his mortality risk was too high. Apparently he had a an 82% chance of . They manage his conditions with medications. He says at 1 point he was put on some medication that cause low blood pressure in fainting. He also says that he has had multiple rounds of pneumonia. He has been on antibiotics every month or 2 for the past couple of years because of bouts of pneumonia. He says he typically gets better for a couple weeks after he does the antibiotics but then gets worse again. He had had a round of antibiotics a few weeks or maybe a month ago and had a couple of good weeks and then his symptoms of cough and shortness of breath recur all over again. The patient also is convinced that he has long COVID because a lot of his symptoms started when he had COVID back in 2022. He has also had diabetes for 10 years and is not well controlled. It sounds like he has diabetic neuropathy and he is on Lyrica for that. Sugar typically runs more than 200 when he checks it at home. Sugar was 210 last night and that is on the low side for him. He was in the hospital about 14 months ago and was told that he had kidney failure. He does not know if he has long-term kidney failure of his kidneys recovered When we go through his med list I see that he is on torsemide 30 mg per day, spironolactone, Entresto, metoprolol. He is also on apixaban and apparently that is for stroke prophylaxis for atrial fibrillation. He is also on insulin, His current symptoms started last week. He and his went to the ER in [place] but apparently they had a little full lobby and a long wait. They became frustrated with the wait so decided to come here to [place]. He and his say that because of his cough and shortness of breath they think he probably needs another round of antibiotics. He has an appointment scheduled on Monday with his professor of anthropology but they feel like he just can not wait that long According to records through [facility] patient has a past medical history of Hypertension Thoracic aortic aneurysm PSVT Atrial fibrillation Ventricular tachycardia Unstable angina Coronary artery disease Chronic heart failure with preserved ejection fraction Mixed hyperlipidemia Hypothyroidism Type 2 diabetes on insulin Morbid obesity Diabetic peripheral neuropathy History of pancreatitis History of multifocal in bilateral pneumonias Migraine headaches BRYANT on CPAP Major depressive disorder Pleural effusions MRSA colonization GERD Current med list includes Apixaban 5 mg b.i.d. Entresto 24-26 mg Metoprolol XR 100 mg Rosuvastatin 20 mg Torsemide 30 mg daily Spironolactone 25 mg daily Ventolin inhaler Oxygen 2 L p.r.n. Insulin Jardiance Pregabalin 150 mg q.h.s. Melatonin 10 mg at bedtime Duloxetine 60 mg daily Acetaminophen Labs from December 2024 WBC 11.4, hemoglobin 14.8, platelet 264 Pro BNP 218 Sodium 133, potassium 4.3, chloride 93, bicarb 26, BUN 21, creatinine 1.11, glucose 519, and anion gap 14, calcium 9.0 It looks like [facility] most [facility] 01/01[facility]. He presented with difficulty breathing. Chest x-ray showed persistent right mid lung and left basilar linear consolidations which were thought to be likely scarring. EKG showed sinus rhythm. PCR negative for COVID influenza. EKG nonischemic. BNP was 218. White count was 11.4. Hemoglobin and platelet counts were normal. Prescribed Augmentin 1 b.i.d. for 5 days and doxycycline 1 b.i.d. for 5 days. Related Data Previous Rx's ?Medication ?Instructions ?Recorded levofloxacin 750 mg tablet 750 mg PO DAILY 6 days #6 tabs 02/02/25 Allergies Allergy/AdvReac Type Severity Reaction Status Date / Time metformin AdvReac Intermediate Diarrhea Verified 02/02/25 16:07 Exam Narrative: Exam Narrative: Constitutional: Appears well-developed. Heavyset. He is leaning to his left against the head of his bed. He looks a droopy and tired but not acutely short of breath or shock ER hypotensive. He looks chronically ill. He has poor eye contact, flat affect. He clearly is very frustrated and run down about his multiple medical problems and multiple hospitalizations. Alert. Overall conversant and not confused but he is so preoccupied with his long-term illness that it is hard to even get him to describe his current problems and what made him come to the emergency room today. HENT: Head: Atraumatic. Nose: Nose normal. Mouth/Throat: Oral mucosa is clear and moist. no trismus. Pharynx normal. Tonsils symmetric. No tonsillar enlargement, erythema, or exudate. Eyes: Conjunctivae normal. EOM normal. Pupils equal, round, and reactive to light. No scleral icterus. Neck: Normal range of motion. Neck supple. No tracheal deviation present. Cardiovascular: Normal rate, regular rhythm. No gallop. No friction rub. No murmur heard. Symmetric radial artery pulses Pulmonary/Chest: Is he is not having labored breathing but he has kind of poor extra effort with lung auscultation. He even with coaching am really not able to get him to take a deep breath in and out to hear good lung sounds. Frequent cough when he tries to breathe out. No stridor. No respiratory distress. No wheezes. Questionable bibasilar rales. No rhonchi . Right rib and right upper quadrant tenderness. Abdominal: Soft. Bowel sounds normal. No distension. No mass. Right rib and right upper quadrant tenderness. No rebound. No guarding. Musculoskeletal: RUE: Normal range of motion. No tenderness. No deformity LUE: Normal range of motion. No tenderness. No deformity RLE: Normal range of motion. No edema. No tenderness. No deformity LLE: Normal range of motion. No edema. No tenderness. No deformity Neurological: Alert and oriented to person, place, and time. Normal strength. CN II-VII intact. No sensory deficit. GCS eye subscore is 4. GCS verbal subscore is 5. GCS motor subscore is 6. Normal coordination Skin: Skin is warm and dry. No rash noted. No pallor. Normal capillary refill. Psychiatric: Normal mood. Normal affect. Const: Vital Signs, click to edit/add: Vital Signs - 24 hr 02/02/25 16:04 02/02/25 17:08 02/02/25 17:15 Temperature 97.3 F L Pulse Rate 85 88 Pulse Rate [Pulse Oximeter] 93 Respiratory Rate 20 Blood Pressure [Ri ght Upper Arm] 124/84 Pulse Oximetry 94 93 91 Oxygen Delivery Me thod Room Air 02/02/25 17:30 02/02/25 17:45 02/02/25 18:00 Temperature Pulse Rate 90 86 86 Pulse Rate [Pulse Oximeter] Respiratory Rate Blood Pressure [Ri ght Upper Arm] Pulse Oximetry 93 92 93 Oxygen Delivery Me thod 02/02/25 18:15 02/02/25 18:30 02/02/25 18:45 Temperature Pulse Rate 84 85 84 Pulse Rate [Pulse Oximeter] Respiratory Rate Blood Pressure [Ri ght Upper Arm] Pulse Oximetry 93 95 95 Oxygen Delivery Me thod Course Vital Signs Vital signs: Initial Vital Signs Temperature 97.3 F L 02/02/25 16:04 Temperature Source Temporal Artery Scan 02/02/25 16:04 Pulse Rate 93 02/02/25 16:04 Respiratory Rate 20 02/02/25 16:04 Blood Pressure 124/84 02/02/25 16:04 Blood Pressure Mean 97 02/02/25 16:04 Blood Pressure Position Sitting 02/02/25 16:04 Pulse Oximetry 94 02/02/25 16:04 Oxygen Delivery Method Room Air 02/02/25 16:04 Vital Signs Temperature 97.3 F L 02/02/25 16:04 Pulse Rate 93 02/02/25 16:04 Respiratory Rate 20 02/02/25 16:04 Blood Pressure 124/84 02/02/25 16:04 Pulse Oximetry 94 02/02/25 16:04 Oxygen Delivery Method Room Air 02/02/25 16:04 Temperature 97.3 F L 02/02/25 16:04 Pulse Rate 84 02/02/25 18:45 Respiratory Rate 20 02/02/25 16:04 Blood Pressure 124/84 02/02/25 16:04 Pulse Oximetry 95 02/02/25 18:45 Oxygen Delivery Method Room Air 02/02/25 16:04 Medications Administered Medications: Discontinued Medications Generic Name Dose Route Start Last Admin Trade Name Freq PRN Reason Stop Dose Admin Levofloxacin 750 mg 02/02/25 18:46 02/02/25 18:54 Levofloxacin 750 Mg Tablet PO 02/02/25 18:47 750 mg ONCE ONE Administration Medical Decision Making MDM Narrative Medical decision making narrative: 54-year-old gentleman with a complex past medical history presenting to the ER the because he has had recurrence of productive cough, shortness of breath and right lateral chest discomfort all progressing over the past week or so. He normally gets his care through [facility], but came here to the ER to [place] today because the wait was too long at the [place] ER. Workup here included chest x-ray which shows a right lower lobe infiltrate. In the setting of his current symptoms I do think this represents a pneumonia. He has been on multiple rounds of antibiotics over the past few months, most recently Augmentin and doxycycline. Will switch him to a new antibiotic this time to avoid at antibiotic resistance. Levaquin. He does have a leukocytosis of 13.5 but otherwise stable blood pressure, normal pulse, normal oxygen. No respiratory distress. Patient verbalizes his frustration about multiple hospitalizations over the past couple of years and wants to manage this pneumonia as an outpatient. He does have history of coronary disease and CHF. However no evidence for ischemia based on EKG or troponin. No evidence for pulmonary edema on chest x-ray today. Differential also would include pneumothorax but these are not seen on the x-ray. There is a tiny right pleural effusion which is probably reactive to the pneumonia. Consider PE to be very unlikely since the patient has no hypoxia, tachycardia, and is already anticoagulated on Eliquis. Precautions for return to the ER reviewed. Lab Data Labs: Lab Results 02/02/25 02/02/25 Range/Units 16:40 16:52 WBC 13.55 H (4.50-11.00) K/uL RBC 4.83 (4.30-5.90) m/uL Hgb 13.4 L (13.5-17.5) gm/dL Hct 41.0 (37.0-53.0) % MCV 85 (80-100) fL MCH 28 (26-34) pg MCHC 33 (32-36) gm/dL RDW Coeff of Osiel 13.6 (11.5-15.5) % Plt Count 224 (140-440) K/uL Neut % (Auto) 79.9 H (42.0-72.0) % Lymph % (Auto) 9.0 L (20-44) % [place] % (Auto) 9.2 (0.0-11.0) % Eos % (Auto) 1.5 (0.0-7.0) % Baso % (Auto) 0.2 (0.0-3.0) % Neut # (Auto) 10.80 H (1.7-7.0) K/uL Lymph # (Auto) 1.20 (0.90-2.90) K/uL [place] # (Auto) 1.20 H (0.00-0.90) K/UL Eos # (Auto) 0.20 (0.00-0.50) K/uL Baso # (Auto) 0.00 (0.00-0.30) K/uL Abs Immat Gran (auto) 0.00 (0.00-0.30) K/uL Imm/Tot Granulo (auto) 0.2 % VBG pH 7.420 (7.32-7.43) VBG pCO2 41 (40-50) mmHG VBG pO2 36.6 (25-47) mmHG VBG HCO3 27 (21-28) mmol/L Sodium 131 L (135-149) mmol/L Potassium 4.4 (3.6-5.1) mmol/L Chloride 98 (96-114) mmol/L Carbon Dioxide 26 (20-32) mmol/L Anion Gap 7 (7-15) mEq/L BUN 13 (7-30) mg/dL Creatinine 0.8 (0.5-1.5) mg/dL Estimated Creat Clear 109.81 Estimated GFR 104 ml/min Glucose 193 H (60-115) mg/dL Lactate 1.4 (0.5-1.9) mmol/L Calcium 8.6 (8.4-10.6) mg/dL Total Bilirubin 1.1 (0.1-1.5) mg/dL AST 21 (12-35) U/L ALT 22 (4-50) U/L Alkaline Phosphatase 101 (40-150) U/L NT-Pro-B Natriuret Pep 176 (See Note) pg/mL Total Protein 7.3 (6.0-8.3) g/dL Albumin 3.8 (3.3-5.0) g/dL SARS-CoV-2 (PCR) Negative SARS-CoV-2 (Negative) Influenza Type A (PCR) Negative PCR FLU A (Negative) Influenza Type B (PCR) Negative PCR FLU B (Negative) POC Troponin I 0.01 (0.01-0.04) ng/ml Imaging Data Chest x-ray: Attestation: I have reviewed the pertinent imaging results. My impression: Right lower lobe infiltrate. No pneumothorax. No pleural effusion. Radiologist's impression: FINDINGS/IMPRESSION: The cardiomediastinal silhouette is unremarkable. Right mid to lower lung zone airspace opacities concerning for right middle and right lower lobe pneumonia with likely superimposed atelectatic changes of the right middle lobe. Small right pleural effusion. No pneumothorax. No displaced fracture ECG Data Attestation: I personally reviewed and interpreted this ECG as follows: Interpretation: Normal sinus rhythm Rate: 85 NJ: 192 QRS axis: Normal axis. Q-wave in lead V1. ST segment/T wave: No ST segment elevation or depression. T-wave inversion in AVR and V1. These can be normal. QTc: 459 Discharge Plan Discharge Clinical Impression: Right lower lobe pneumonia Patient Disposition: Home, Self-Care Condition: Stable Instructions: Community Acquired Pneumonia (DC) Additional Instructions: As we discussed, please start on the new antibiotic and take it once per day for 7 days. Return to the ER or see your doctor immediately if you have any worsening trouble breathing, worsening pain, high fever, weakness, or any other problems. Even if he get better, please recheck with your primary care doctor next week. Please follow-up with your professor of anthropology for your recheck on Monday as well. Be sure to do your best to keep her blood sugar under control. Keeping her blood sugar down helps your immune system fight more strongly Prescriptions: New levofloxacin 750 mg tablet 750 mg PO DAILY 6 Days Qty: 6 0RF Follow Up/Referrals: Flaca Phillips [Primary Care Provider, Internal Medicine] Stand Alone Forms: [employer] Info Instructions
--- NOTE | 2025-02-02 16:40 | CRLHL7_ITS ---
For Patients: As a result of the Cures Act, medical imaging exams and procedure reports are released immediately into your electronic medical record. You may view this report before your referring provider. If you have questions, please contact your health care provider. INDICATION: : cough, right lateral chest pain COMPARISON: None TECHNIQUE: Two view(s) of the chest FINDINGS/IMPRESSION: The cardiomediastinal silhouette is unremarkable. Right mid to lower lung zone airspace opacities concerning for right middle and right lower lobe pneumonia with likely superimposed atelectatic changes of the right middle lobe. Small right pleural effusion. No pneumothorax. No displaced fractures. Dictated by Angel Abbott MD @ 02/02/2025 6:36:37 PM (Electronically Signed)
[2025-02-02 17:06] LABS: Basophils Percent Auto 0.2 % (0.0-3.0); Eosinophils Percent Auto 1.5 % (0.0-7.0); Hemoglobin* 13.4 gm/dL (13.5-17.5); Immature Granulocytes Pct Auto 0.2 %; Mean Corpuscular HGB Conc 33 gm/dL (32-36); Mean Corpuscular Hemoglobin 28 pg (26-34); Mean Corpuscular Volume 85 fL (80-100); Monocytes Percent Auto 9.2 % (0.0-11.0); Neutrophils Percent Auto 79.9 % (42.0-72.0); Platelet Count* 224 K/uL (140-440); RDW Coefficient of Variation % 13.6 % (11.5-15.5); Red Blood Count 4.83 m/uL (4.30-5.90); White Blood Count* 13.55 K/uL (4.50-11.00)
[2025-02-02 17:08] LABS: HCO3 VBG 27 mmol/L (21-28); Lactate Sepsis w/Reflex* 1.4 mmol/L (0.5-1.9); Lactate* 1.4 mmol/L (0.5-1.9); PCO2 VBG 41 mmHG (40-50); PO2 VBG 36.6 mmHG (25-47)
[2025-02-02 17:11] LABS: Troponin, Point-of-Care* 0.01 ng/ml (0.01-0.04)
[2025-02-02 17:29] LABS: Slide Review Reflex No
[2025-02-02 17:39] LABS: Albumin* 3.8 g/dL (3.3-5.0); Chloride* 98 mmol/L (96-114); Potassium* 4.4 mmol/L (3.6-5.1); Sodium* 131 mmol/L (135-149)
[2025-02-02 17:42] LABS: Alanine Aminotransferase* 22 U/L (4-50); Alkaline Phosphatase* 101 U/L (40-150); Anion Gap 7 mEq/L (7-15); Aspartate Amino Transferase* 21 U/L (12-35); Bilirubin Total* 1.1 mg/dL (0.1-1.5); Blood Urea Nitrogen* 13 mg/dL (7-30); Calcium* 8.6 mg/dL (8.4-10.6); Carbon Dioxide* 26 mmol/L (20-32); Creatinine* 0.8 mg/dL (0.5-1.5); Est. Creatinine Clearance* 109.81; Estimated Glomerular Filt Rate 104 ml/min; Glucose* 193 mg/dL (60-115); Total Protein* 7.3 g/dL (6.0-8.3)
[2025-02-02 17:44] LABS: PCR FLU A Negative PCR FLU A (Negative); PCR FLU B Negative PCR FLU B (Negative); SARS PCR* Negative SARS-CoV-2 (Negative)
[2025-02-02 17:56] LABS: NT Pro B Type NatriureticPept* 176 pg/mL (See Note)
[2025-02-02] MEDS: levoFLOXacin 750 MG TABLET PO (18:54)
== END 2025-02-02 19:01 | disposition home or self-care (01) ==
PROVIDERS: Emergency Provider Emergency Medicine; PCP Internal Medicine
DX: J18.9 Pneumonia, unspecified organism (principal)
CPT/HCPCS: 36415; 71046; 80053; 82803; 83605; 83880; 84484; 85025; 87631; 93005; 99283; 99284; A9270